=== PATIENT | male | born 1945 | race Asian ===

== ENCOUNTER 2023-08-11 13:04 | Emergency (ER) | payer OTHER ==
[~2023-08-11] VITALS: Ht 154.9 cm; Wt 58.0 kg
[2023-08-11] MEDS: cloNIDine HCL 0.1 MG TAB ONE (13:29)
[2023-08-11] MEDS: cloNIDine HCL 0.1 MG TAB PO ONE (13:30)
[2023-08-11 14:17] LABS: Basophils # (auto) 0 10 ^3/uL (0-0.2); Basophils % (auto) 0.3 % (0.0-2.0); Eosinophils # (auto) 0.1 10 ^3/uL (0-0.8); Eosinophils % (auto) 1.8 % (0.0-7.0); Hematocrit 42.5 % (41.0-53.0); Hemoglobin 14.1 g/dL (13.5-17.5); Lymphocytes # (auto) 1.3 10 ^3/uL (0.4-5.4); Lymphocytes % (auto) 20.6 % (10.0-50.0); Mean Corpuscular Hemoglobin 28.3 pg (28.0-32.0); Mean Corpuscular Hgb Conc. 33.2 g/dL (32.0-36.0); Mean Corpuscular Volume 85.3 fL (80.0-100.0); Monocytes # (auto) 0.2 10 ^3/uL (0-1.3); Monocytes % (auto) 3.6 % (0.0-12.0); Neutrophils # (auto) 4.8 10 ^3/uL (1.6-8.6); Neutrophils % (auto) 73.7 % (37.0-80.0); Nucleated Red Blood Cells % 0.2 %; Red Blood Cells 4.98 10^6/uL (4.5-5.90); Red Cell Distribution Width 13.2 % (11.8-14.3); White Blood Cell 6.5 10^3/uL (4.4-10.8)
[2023-08-11 14:20] VITALS: TEMP 98.1
[2023-08-11 14:33] LABS: Alanine Aminotransferase 21 U/L (7-40); Albumin 4.6 g/dL (3.2-4.8); Alkaline Phosphatase 140 U/L (46-116); Anion Gap 7 (5-15); Aspartate Aminotransferase 33 U/L (13-40); Bilirubin, Total 0.6 mg/dL (0.2-1.0); Blood Urea Nitrogen 9 mg/dL (9-23); Calcium 9.4 mg/dL (8.5-10.1); Carbon Dioxide 28 mmol/L (20-30); Chloride 100 mmol/L (98-107); Glucose 165 mg/dL (74-106); Potassium 4.1 mmol/L (3.5-5.1); Sodium 135 mmol/L (136-145); Total Protein 7.5 g/dL (5.7-8.2)
[2023-08-11] MEDS ORDERED: DEXT1SYP9 PO (17:21)
[2023-08-11] MEDS ORDERED: AZIT500T PO (17:21)
[2023-08-11] MEDS ORDERED: OLME1TAB73 PO (17:23)
[2023-08-11 17:30] VITALS: BP 168/70; PULSE 68; RESP 16; O2SAT 100
== END 2023-08-11 17:32 | disposition home or self-care (01) ==
LOC: ER 13:04
DX: J20.9 Acute bronchitis, unspecified (principal); I10 Essential (primary) hypertension; E78.5 Hyperlipidemia, unspecified; R07.89 Other chest pain
CPT/HCPCS: 36415; 71046; 80053; 84484; 85025; 93005